=== PATIENT | female | born 1950 | race African-American/Black ===

== ENCOUNTER → 2018-10-24 | Outpatient (CLI) | payer MEDICARE ==
[~2018-10-24] VITALS: Ht 154.9 cm; Wt 61.5 kg
[~2018-10-24] MED LIST: ASPIRIN E.C. 8181 MG PO; PRINIVIL10 MG PO; TOPROL XL 25MG25 MG PO
[2018-10-24 08:38] VITALS: BP 154/87; PULSE 90
== END ==
LOC: COL.CARD 08:24
DX: R00.2 Palpitations (principal)
CPT/HCPCS: A9500